=== PATIENT | female | born 1990 | race Hispanic/Latino ===

== ENCOUNTER 2016-12-22 12:53 | Inpatient (IN) | payer OTHER ==
[~2016-12-22] VITALS: Ht 152.4 cm; Wt 79.3 kg
[2016-12-22] VITALS (17 sets, daily range): BP systolic 110–136; BP diastolic 66–86
[2016-12-22] MEDS ORDERED: PRENATAL TABLE1 EAC3 PO (13:49)
[2016-12-22 16:29] LABS: EOSINOPHIL (%) 1.7 % (0-5); EOSINOPHIL COUNT 0.2 K/uL (0-0.3); HEMATOCRIT 36.9 % (36.0-46.0); IMMATURE GRANULOCYTE (%) 0.3 % (0.0-0.7); INSTRUMENT ABS NEUTROPHIL CT 6.6 K/uL; LYMPHOCYTE COUNT 1.5 K/uL (1.0-2.8); MCH 31.2 PG (29.0-34.0); MCHC 32.8 G/DL (30.0-36.0); MCV 95.1 FL (83-99); MEAN PLAT.VOLUME 11.2 uM^3 (9.5-12.4); MONOCYTE (%) 5.6 % (3-12); MONOCYTE COUNT 0.5 K/uL (0-0.8); NEUTROPHIL (%) 75.5 % (45-76); NEUTROPHIL COUNT 6.6 K/uL (1.8-6.4); PLATELET COUNT 189 K/uL (156-360); RBC DIS.WIDTH-CV 15.3 % (11.8-14.6); RBC DIS.WIDTH-SD 53.3 % (39-53); RED BLOOD COUNT 3.88 M/uL (3.80-5.20); WHITE BLOOD COUNT 8.7 K/uL (4.1-10.2)
[2016-12-22 17:04] LABS: AMPHETAMINE NEGATIVE (500 ng/mL); BARBITURATES NEGATIVE (200 ng/mL); BENZODIAZEPINES NEGATIVE (150 ng/mL); COCAINE NEGATIVE (150 ng/mL); INTERNAL CONTROLS VALID? YES; METHADONE NEGATIVE (200 ng/mL); METHAMPHETAMINE NEGATIVE (500 ng/mL); OPIATES (MORPHINE) NEGATIVE (100 ng/mL); OXYCODONE NEGATIVE (100 ng/mL); PHENCYCLIDINE NEGATIVE (25 ng/mL); PROPOXYPHENE NEGATIVE (300 ng/mL); THC CANNABINOIDS NEGATIVE (50 ng/mL); TRICYCLIC ANTIDEPRESSANTS NEGATIVE (300 ng/mL)
[2016-12-23] VITALS (25 sets, daily range): BP systolic 101–142; BP diastolic 58–92
[2016-12-23] MEDS ORDERED: PERCOCET 5/31 TABLET PO (15:35)
[2016-12-23] MEDS ORDERED: MOTRIN400 MG PO (15:35)
[2016-12-24 03:32] VITALS: BP 106/54
[2016-12-24 07:09] VITALS: BP 116/77
[2016-12-24 07:45] LABS: HEMATOCRIT 29.8 % (36.0-46.0); MCH 31.3 PG (29.0-34.0); MCHC 32.6 G/DL (30.0-36.0); MCV 96.1 FL (83-99); MEAN PLAT.VOLUME 11.2 uM^3 (9.5-12.4); PLATELET COUNT 146 K/uL (156-360); RBC DIS.WIDTH-CV 15.6 % (11.8-14.6); RBC DIS.WIDTH-SD 54.1 % (39-53); WHITE BLOOD COUNT 11.6 K/uL (4.1-10.2)
[2016-12-24 08:02] LABS: EOSINOPHIL (%) 1.7 % (0-5); EOSINOPHIL COUNT 0.2 K/uL (0-0.3); IMMATURE GRANULOCYTE (%) 0.6 % (0.0-0.7); IMMATURE GRANULOCYTE COUNT 0.1 K/uL; INSTRUMENT ABS NEUTROPHIL CT 8.8 K/uL; LYMPHOCYTE COUNT 1.8 K/uL (1.0-2.8); MONOCYTE COUNT 0.7 K/uL (0-0.8); NEUTROPHIL (%) 75.6 % (45-76); NEUTROPHIL COUNT 8.8 K/uL (1.8-6.4)
[2016-12-24 12:05] VITALS: BP 129/79
[2016-12-25 08:06] VITALS: BP 115/71
[2016-12-25 10:51] VITALS: BP 126/77
[2016-12-25 15:46] VITALS: BP 129/78
[2016-12-26 07:32] VITALS: BP 107/71
[2016-12-26 14:20] VITALS: BP 118/71
[2016-12-26 22:38] VITALS: BP 133/70
[2016-12-27 09:07] VITALS: BP 114/56
== END 2016-12-27 14:00 | disposition home or self-care (01) | DRG 765 ==
LOC: LDRP-OP 12:53 → 2WEST 12:54 → LDRP-OP 01-11 12:22
PROVIDERS: Obstetrics & Gynecology
DX: O62.1 Secondary uterine inertia (principal); O41.1230 Chorioamnionitis, third trimester, not applicable or unspecified; O99.03 Anemia complicating the puerperium; D62 Acute posthemorrhagic anemia; O42.02 Full-term premature rupture of membranes, onset of labor within 24 hours of rupture; O48.0 Post-term pregnancy; O76 Abnormality in fetal heart rate and rhythm complicating labor and delivery; O99.214 Obesity complicating childbirth; E66.9 Obesity, unspecified; Z3A.41 41 weeks gestation of pregnancy; Z37.0 Single live birth
CPT/HCPCS: 85025; 88307; C1755; G0378; J0290; J0690; J1170; J1580; J2175; J2270; J2274; J2405; J2765; J3010; J7050; J7120